=== PATIENT | male | born 1985 | race Caucasian/White ===

== ENCOUNTER 2017-11-23 13:26 | Emergency (ER) | payer MEDICARE, OTHER ==
[~2017-11-23] VITALS: Ht 157.5 cm; Wt 72.6 kg
[~2017-11-23 13:26] MED LIST: ALBU90OI INH; Amoxicillin500 MG PO; Bactrim Ds Tab1 EACH PO; CYCL10 PO; DAYQUIL; DOXY100 PO; Esgic Tablet1 EACH PO; FLUO20 PO; HYDCHL25 PO; MEBE100 PO; PRED10 PO; PSEU120ER PO; SIMV5 PO; Zofran Odt4 MG SL
== END 2017-11-23 14:34 | disposition home or self-care (01) ==
LOC: ER 13:26
DX: R68.84 Jaw pain (principal); F32.9 Major depressive disorder, single episode, unspecified; I10 Essential (primary) hypertension; Z87.891 Personal history of nicotine dependence; Z79.899 Other long term (current) drug therapy
CPT/HCPCS: 99281

== ENCOUNTER 2020-02-01 18:39 | Emergency (ER) | payer OTHER, MEDICARE ==
[~2020-02-01] VITALS: Ht 157.5 cm; Wt 63.5 kg
[2020-02-01] MEDS ORDERED: NYSTOP15 GM TOP (19:00)
[2020-02-01] MEDS ORDERED: BACITO TOP (19:00)
== END 2020-02-01 19:39 | disposition home or self-care (01) ==
LOC: ER 18:39
DX: T24.232A Burn of second degree of left lower leg, initial encounter (principal); T31.0 Burns involving less than 10% of body surface; B37.49 Other urogenital candidiasis; I10 Essential (primary) hypertension; F32.9 Major depressive disorder, single episode, unspecified; Z23 Encounter for immunization; Z79.899 Other long term (current) drug therapy; X08.8XXA Exposure to other specified smoke, fire and flames, initial encounter
CPT/HCPCS: 16020; 90471; 90714; 99282

== ENCOUNTER → 2020-09-10 | Outpatient (CLI) | payer MEDICARE, OTHER ==
[~2020-09-10] MED LIST changes: +BACITO TOP; +NYSTOP15 GM TOP
[2020-09-10 13:36] LABS: Stool Occult Blood Guaiac 1 Neg (Neg)
== END ==
LOC: LAB 10:00 → LAB SHORT 10:00
PROVIDERS: Nurse Practitioner Family
DX: R19.5 Other fecal abnormalities (principal)
CPT/HCPCS: 82272